=== PATIENT | female | born 2005 | race Hispanic/Latino ===

== ENCOUNTER 2024-09-16 10:04 | Emergency (ER) | payer OTHER ==
[2024-09-16] MEDS ORDERED: IBUPROFEN 400 MG TAB ONE (10:25)
[2024-09-16] MEDS ORDERED: HYDROCODONE/APAP 5/325 MG TAB ONE (10:26)
--- NOTE | 2024-09-16 10:56 | RAD REPORT ---
Exam:Humerus Right CLINICAL HISTORY: Right arm pain FINDINGS: Comminuted moderately displaced fracture mid humerus.
--- NOTE | 2024-09-16 10:56 | RAD REPORT ---
Exam:Shoulder 1 View History: Right shoulder pain Findings: No fracture or dislocation seen involving the right shoulder
--- NOTE | 2024-09-16 10:57 | RAD REPORT ---
Procedure: Chest Single View HISTORY: Right shoulder injury. Fall COMPARISON: none FINDINGS: The lungs appear clear of acute infiltrate. No significant pleural effusion noted. The heart is normal size. IMPRESSION: No acute abnormality is displayed.
--- NOTE | 2024-09-16 11:11 | ER ---
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 R arm bicep area pain since. ll1 No head injury or LOC. Coronavirus screen: Client denies travel out of the [place] in the last 14 days. At this time, the client does not indicate any symptoms associated with coronavirus-19. Ebola Screen: Patient denies travel to an Ebola-affected area in the 21 days before illness onset. Initial Sepsis Screen: Does the patient meet any 2 criteria? No. Patient's initial sepsis screen is negative. Does the patient have a suspected source of infection? No. Patient's initial sepsis screen is negative. Risk Assessment: Do you want to hurt yourself or someone else? Patient reports no desire to harm self or others. Onset of symptoms was September 16, 2024. 10:13 Method Of Arrival: Ambulatory ll1 10:13 Acuity: BENSON 4 ll1 Triage Assessment: 10:13 General: Appears distressed, uncomfortable, Behavior is calm, cooperative, appropriate ll1 for age. Pain: Complains of pain in right arm Pain currently is 9 out of 10 on a pain scale. Quality of pain is described as aching, throbbing. Musculoskeletal: Circulation, motion, and sensation intact. Capillary refill < 3 seconds, in right fingers. Reports pain in right arm. Injury Description: Bruise. Historical: - Allergies: 10:13 No Known Allergies; ll1 - Home Meds: 10:13 None [Active]; ll1 - PMHx: 10:13 None; ll1 - PSHx: 10:13 None; ll1 - Immunization history:: Adult Immunizations up to date. - Infectious Disease History:: Denies. - Social history:: Smoking status: Patient denies any tobacco usage or history of. Screenin:20 [facility] ED Fall Risk Assessment (Adult) History of falling in the last 3 months, cm10 including since admission Yes- single mechanical fall (1 pt) Confusion or Disorientation No (0 pts) Intoxicated or Sedated No (0 pts) Impaired Gait No (0 pts) Mobility Assist Device Used No (0 pt) Altered Elimination No (0 pt) Score/Fall Risk Level 0 - 2 = Low Risk Oriented to surroundings, Maintained a safe environment, Hourly rounding (assess needs \T\ fall precautionary measures) done. Abuse screen: Denies threats or abuse. Denies injuries from another. Nutritional screening: No deficits noted. Tuberculosis screening: No symptoms or risk factors identified. Assessment: 11:00 General: Appears uncomfortable, Behavior is calm, appropriate for age. Pain: Complains cm10 of pain in right arm. Neuro: No deficits noted. Level of Consciousness is awake, alert, obeys commands, Oriented to person, place, time, situation, Appropriate for age. Respiratory: No deficits noted. Airway is patent Respiratory effort is even, unlabored, Respiratory pattern is regular, symmetrical. Musculoskeletal: Reports pain in right arm. Vital Signs: 10:13 BP 98 / 59; Pulse 73; Resp 17; Temp 97.7; Pulse Ox 100% ; Weight 81.65 kg; Height 5 ft. ll1 5 in. ; Pain 9/10; 10:13 Body Mass Index 29.95 (81.65 kg, 165.1 cm) ll1 10:13 Pain Scale: Adult ll1 ED Course: 10:06 Patient arrived in ED. mr 10:06 Jigar Hernandez MD is Attending Physician. ec2 10:14 Triage completed. ll1 10:18 Arm band placed on Patient placed in an exam room, on a stretcher. ll1 10:34 Payal Amin, SALLIE is Primary Nurse. cm10 10:42 Humerus Right XRAY In Process Unspecified. EDMS 10:42 CXR XRAY In Process Unspecified. EDMS 10:51 Shoulder 1 View In Process Unspecified. EDMS 11:10 Cosmo Lund MD is Referral Physician. ec2 11:21 Patient has correct armband on for positive identification. Provided Education on: cm10 Follow-up intstructions.. 11:21 No provider procedures requiring assistance completed. Patient did not have IV access cm10 during this emergency room visit. Sling applied to right arm. Administered Medications: 10:28 Drug: HYDROcodone-acetaminophen PO 5 mg-325 mg 2 tabs PO once Route: PO; ll1 11:20 Follow up: Response: No adverse reaction cm10 10:28 Drug: Ibuprofen PO 800 mg PO once Route: PO; ll1 11:20 Follow up: Response: No adverse reaction cm10 Medication: 11:20 VIS not applicable for this client. cm10 Outcome: 11:10 Discharge ordered by . ec2 11:21 Discharged to home via wheelchair, with family, cm10 11:21 Condition: good 11:21 Discharge instructions given to patient, Instructed on discharge instructions, follow up and referral plans. medication usage, Demonstrated understanding of instructions, follow-up care, medications, Prescriptions given X 1, 11:22 Patient left the ED. cm10 Signatures: Dispatcher [employer] EDBertha Ernst, Reg Reg mr Renetta Johnson, RN RN ll1 Payal Amin RN RN cm10 Jigar Hernandez MD MD ec2 Corrections: (The following items were deleted from the chart) 10:15 10:13 Resp 17bpm; 81.65 kg; Height 5 ft. 5 in.; BMI: 29.9; Pain 05/05, Adult; ll1 ll1 10:51 10:42 In radiology for Shoulder Right 2 View+RAD.RAD.BRZ. EDME EDME
--- NOTE | 2024-09-16 11:11 | EDPHYS ---
Physician Documentation [facility] Name: Rojelio Ervin Age: 19 yrs Sex: Female : 2005 Arrival Date: 09/16/2024 Time: 10:04 Bed 14 Private MD: ED Physician Jigar Hernandez HPI: 09/16 11:01 This 19 yrs old Female presents to ER via Ambulatory with complaints of Arm Injury. ec2 11:01 Patient arrives today for evaluation after a ground-level fall. Patient reports pain in ec2 the right humerus. No LOC, no head strike.. Historical: - Allergies: 10:13 No Known Allergies; ll1 - Home Meds: 10:13 None [Active]; ll1 - PMHx: 10:13 None; ll1 - PSHx: 10:13 None; ll1 - Immunization history:: Adult Immunizations up to date. - Infectious Disease History:: Denies. - Social history:: Smoking status: Patient denies any tobacco usage or history of. ROS: 11:01 Constitutional: as per hpi ec2 Exam: 11:01 Constitutional: GEN: NAD Head: atraumatic Eyes: EOMI Ears: External ears are ec2 normal. CV: regular rate LUNGS: no respiratory distress ABD: non-distended SKIN: no evidence of rashes MSK: Tenderness to the midshaft right humerus. Intact distal neurovascular status of the right upper extremity. Vital Signs: 10:13 BP 98 / 59; Pulse 73; Resp 17; Temp 97.7; Pulse Ox 100% ; Weight 81.65 kg; Height 5 ft. ll1 5 in. ; Pain 9/10; 10:13 Body Mass Index 29.95 (81.65 kg, 165.1 cm) ll1 10:13 Pain Scale: Adult ll1 MDM: 10:22 Medical Screening Exam initiated ec2 11:01 ED course: Humerus x-ray independently reviewed and interpreted by me, shows midshaft ec2 comminuted fracture. Will place the patient in sling and have patient follow-up with orthopedic surgery.. 11:01 Data reviewed: vital signs, nurses notes. ED course: Arrives today for right arm ec2 injury. Examination yields MSK findings as above. Suspect humerus fracture. Doubt neurovascular compromise given reassuring neurovascular examination with intact distal radial pulse and intact sensation and movement. Will place patient in sling.. 09/16 10:18 Order name: Humerus Right XRAY; Complete Time: 10:59 ec2 09/16 10:18 Order name: CXR XRAY; Complete Time: 10:59 ec2 09/16 10:51 Order name: Shoulder 1 View; Complete Time: 10:59 EDMS 09/16 10:18 Order name: Sling; Complete Time: 10:24 ec2 Administered Medications: 10:28 Drug: HYDROcodone-acetaminophen PO 5 mg-325 mg 2 tabs PO once Route: PO; ll1 11:20 Follow up: Response: No adverse reaction cm10 10:28 Drug: Ibuprofen PO 800 mg PO once Route: PO; ll1 11:20 Follow up: Response: No adverse reaction cm10 Disposition Summary: 09/16/24 11:10 Discharge Ordered Notes: Location: Home ec2 Condition: Stable ec2 Diagnosis - Midshaft Humerus Fracture ec2 Followup: ec2 - With: Cosmo Lund MD - When: - Reason: Recheck today's complaints Discharge Instructions: - Discharge Summary Sheet ec2 - Humerus Fracture Treated With Immobilization, [id number] ec2 Forms: - Medication Reconciliation Form ec2 - Antibiotic Education ec2 - Prescription Opioid Use ec2 - Patient Portal Instructions ec2 - Leadership Thank You Letter ec2 Prescriptions: - acetaminophen-codeine 300-30 mg Oral tablet - take 1 tablet ORAL route every 6 hours; 15 tablet; Refills: 0, Product ec2 Selection Permitted Signatures: Dispatcher [employer] Renetta Blum RN RN ll1 Payal Amin RN RN cm10 Jigar Hernandez MD MD ec2 Corrections: (The following items were deleted from the chart) 10:19 10:19 Chest Single View+RAD.RAD.BRZ ordered. EDMS EDMS 10:51 10:18 Shoulder Right 2 View+RAD.RAD.BRZ ordered. EDMS EDMS
[2024-09-16 12:16] VITALS: BP 98/59; TEMP 97.7; O2SAT 100
== END 2024-09-16 11:22 | disposition home or self-care (01) ==
LOC: ER 10:04
DX: S42.301A Unspecified fracture of shaft of humerus, right arm, initial encounter for closed fracture (principal)
CPT/HCPCS: 71045; 73020; 99283

== ENCOUNTER 2024-10-20 16:54 | Emergency (ER) | payer OTHER ==
--- NOTE | 2024-10-20 19:09 | RAD REPORT ---
EXAMINATION: XR RIGHT HUMERUS HISTORY: PAIN RIGHT TECHNIQUE: 2 views of the right humerus were obtained. COMPARISON: None FINDINGS: Displaced midshaft right humerus fracture, with mild lateral apex angulation, and 5 mm late ral displacement of the distal fragment. Progressive periosteal reaction and early resorption along the fracture margins prior exam, suggesting interval changes of healing. Joint alignment is maintaine d.
--- NOTE | 2024-10-20 19:18 | ER ---
Nurse's Notes [facility] Name: Rojelio Ervin Age: 19 yrs Sex: Female : 2005 Arrival Date: 10/20/2024 Time: 16:54 Bed DX4 Private MD: Diagnosis: Fracture of right humerus, midshaft, healing Presentation: 10/20 17:34 Chief complaint: Patient states: broke her right humerus on the , yesterday she iw took her brace off yesterday and she fell , is having more pain , called Dr. Lund's office and they told her to come get another xray. Coronavirus screen: At this time, the client does not indicate any symptoms associated with coronavirus-19. Ebola Screen: No symptoms or risks identified at this time. Initial Sepsis Screen: Does the patient meet any 2 criteria? No. Patient's initial sepsis screen is negative. Does the patient have a suspected source of infection? No. Patient's initial sepsis screen is negative. Risk Assessment: Do you want to hurt yourself or someone else? Patient reports no desire to harm self or others. Onset of symptoms was October 20, 2024. 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 - Infectious Disease History:: Denies. - Social history:: Smoking status: Reported history of juuling and/or vaping. Screenin:31 [facility] ED Fall Risk Assessment (Adult) History of falling in the last 3 months, vc1 including since admission No falls in past 3 months (0 pts) Confusion or Disorientation No (0 pts) Intoxicated or Sedated No (0 pts) Impaired Gait No (0 pts) Mobility Assist Device Used No (0 pt) Altered Elimination No (0 pt) Score/Fall Risk Level 0 - 2 = Low Risk Oriented to surroundings, Maintained a safe environment, Educated pt \T\ family on fall prevention, incl call for assistance when getting out of bed. Abuse screen: Denies threats or abuse. Nutritional screening: No deficits noted. Tuberculosis screening: No symptoms or risk factors identified. Vital Signs: 17:34 BP 114 / 67; Pulse 100; Resp 16; Temp 97.8; Pulse Ox 100% on R/A; iw ED Course: 16:56 Patient arrived in ED. im 16:58 Pam Cisneros FNP-C [facility]. kb 16:58 Tito Mathis MD is Attending Physician. kb 17:35 Triage completed. iw 17:36 Arm band placed on. iw 18:19 Humerus Right XRAY In Process Unspecified. EDMS 19:32 seen in diagnostic chair. Provided Education on: f/u with PCP. vc1 19:32 No provider procedures requiring assistance completed. Patient did not have IV access vc1 during this emergency room visit. Administered Medications: No medications were administered Medication: 19:32 VIS not applicable for this client. vc1 Outcome: 19:17 Discharge ordered by MD. kb 19:32 Discharged to home ambulatory, vc1 19:32 Condition: stable 19:32 Discharge instructions given to patient, Instructed on discharge instructions, follow up and referral plans. Demonstrated understanding of instructions, follow-up care, 19:33 Patient left the ED. vc1 Signatures: Dispatcher [employer] EDNV Pam Cisneros FNP-C FNP-Ckb Williams, Irene, RN SALLIE Gay De La Cruz RN RN vc1 Bing Felix im
--- NOTE | 2024-10-20 19:18 | EDPHYS ---
Physician Documentation [facility] Name: Rojelio Ervin Age: 19 yrs Sex: Female : 2005 Arrival Date: 10/20/2024 Time: 16:54 Bed DX4 Private MD: ED Physician Tito Mathis HPI: 10/20 19:15 This 19 yrs old Female presents to ER via Ambulatory with complaints of Arm kb Injury. 19:15 Pt is a 19 year old female who presents for pain to right upper arm. States she kb fractured it on 09/16/24 and is being seen by Dr Lund. States she had her brace off to clean it and fell onto the arm so she has had some increased pain. Came in to get it xrayed to make sure she didn't rebreak it. . 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 - Infectious Disease History:: Denies. - Social history:: Smoking status: Reported history of juuling and/or vaping. ROS: 19:14 Constitutional: As per HPI kb Exam: 19:14 Constitutional: This is a well developed, well nourished patient who is awake, alert, kb and in no acute distress. Head/Face: Normocephalic, atraumatic. ENT: Moist Mucous membranes Cardiovascular: Regular rate Respiratory: Respirations even and unlabored. No increased work of breathing. Talking in full sentences Skin: Warm, dry with normal turgor. Normal color. Neuro: Awake and alert, GCS 15, oriented to person, place, time, and situation. 19:14 Musculoskeletal/extremity: Extremities: grossly normal except: noted in the right upper arm: pain, in brace, Circulation is intact in all extremities. Sensation intact. Vital Signs: 17:34 BP 114 / 67; Pulse 100; Resp 16; Temp 97.8; Pulse Ox 100% on R/A; iw MDM: 16:58 Medical Screening Exam initiated kb 19:16 Differential diagnosis: fracture, contusion. Data reviewed: vital signs, nurses notes. kb Counseling: I had a detailed discussion with the patient and/or guardian regarding the historical points, exam findings, and any diagnostic results supporting the discharge/admit diagnosis, radiology results, the need for outpatient follow up, a orthopedic surgeon, to return to the emergency department if symptoms worsen or persist or if there are any questions or concerns that arise at home. 10/20 17:41 Order name: Humerus Right XRAY; Complete Time: 19:10 kb Administered Medications: No medications were administered Disposition: 10/21 07:07 Co-signature as Attending Physician, Tito Mathis MD I reviewed the patient's care rn provided by the Advanced Practice Provider and agree with the diagnosis and treatment plan. Disposition Summary: 10/20/24 19:17 Discharge Ordered Notes: Location: Home kb Condition: Stable kb Diagnosis - Fracture of right humerus, midshaft, healing kb Followup: kb - With: Private Physician - When: 2 - 3 days - Reason: Recheck today's complaints, Continuance of care, Re-evaluation by your physician Followup: kb - With: Emergency Department - When: As needed - Reason: Worsening of condition Discharge Instructions: - Discharge Summary Sheet kb - Humerus Fracture Treated With Immobilization, [id number] kb Forms: - Medication Reconciliation Form kb - Antibiotic Education kb - Prescription Opioid Use kb - Patient Portal Instructions kb - Leadership Thank You Letter kb Signatures: Dispatcher [employer] Pam Sibley, MARIA ISABEL-C CORRECTIONAL NURSE-Ely Irwin RN RN iw Nieto, Roman, MD MD rn Calcote, Vanessa, RN RN vc1
[2024-10-20 20:11] VITALS: BP 114/67; TEMP 97.8; O2SAT 100
== END 2024-10-20 19:33 | disposition home or self-care (01) ==
LOC: ER 16:54
DX: M79.621 Pain in right upper arm (principal); S42.301S Unspecified fracture of shaft of humerus, right arm, sequela
CPT/HCPCS: 99282